=== PATIENT | female | born 1980 | race Caucasian/White ===

== ENCOUNTER 2016-09-09 19:10 | Emergency (ER) | payer OTHER ==
[~2016-09-09] VITALS: Ht 167.6 cm; Wt 130.0 kg
[~2016-09-09 19:10] MED LIST: ALBUAER2 INH; CITA40TA4 PO; HYDR50CA2 PO; MOME100A INH; MULT-506 PO; OXCA150T2 PO; OXYC1TAB3 PO
[2016-09-09 19:12] VITALS: TEMP 36.7; Ht 167.6 cm; Wt 130.0 kg
[2016-09-09] MEDS ORDERED: ONDANSETRON INJ 2 MG/ML 2 ML VIAL IV STA (21:32)
[2016-09-09] MEDS ORDERED: SODIUM CHLORIDE 0.9% 1000ML 1,000 ML IV STA ×2 (21:32)
[2016-09-09] MEDS ORDERED: ALBUT/IPRATROP 3MG/0.5MG NEB 3 ML VIAL INH STA (21:32)
[2016-09-09] MEDS ORDERED: METHYLPREDNISOLONE 125 MG VIAL IV STA (21:32)
[2016-09-09 21:53] VITALS: O2SAT 97
--- NOTE | 2016-09-09 22:09 | DIAGNOSTIC IMAGING REPORT ---
CHEST ONE VIEW PORTABLE HISTORY: Atypical CHEST PAIN COMPARISON: Chest 03/09/2016. FINDINGS: The lungs are clear. Cardiac silhouette is normal in size. No pleural effusions. No pneumothorax. Incidental is made of a small right azygos lobe. IMPRESSION: No acute process. Electronically signed by: Damian Woodruff M.D. 09/09/2016 10:08 PM Dictated Date/Time: 09/09/2016 10:07 PM
[2016-09-09 22:33] LABS: BASO % 0.3 %; BASO ABS # 0.02 K/uL (0-0.2); COMPLETE YES; EOS % 4.8 %; HEMATOCRIT 41.4 % (37-47); IG% 0.3 %; LYMPH % 26.9 %; LYMPH ABS # 2.07 K/uL (1.2-3.4); MEAN CELL VOLUME 86.3 fL (80-100); MEAN CORPUSCULAR HEMOGLOBIN 29.6 pg (25-34); MEAN CORPUSCULAR HGB CONC 34.3 g/dl (32-36); MEAN PLATELET VOLUME 11.1 fL (7.4-10.4); MONO % 4.4 %; NEUT % 63.3 %; PLATELET COUNT 177 K/uL (130-400); WHITE BLOOD COUNT 7.69 K/uL (4.8-10.8)
[2016-09-09 22:51] LABS: ALT/SGPT 36 U/L (12-78); BLOOD UREA NITROGEN 19 mg/dl (7-18); BUN/CREATININE RATIO 25.8 (10-20); CALCIUM 9.4 mg/dl (8.5-10.1); CARBON DIOXIDE 25 mmol/L (21-32); CHLORIDE 108 mmol/L (98-107); CREATININE 0.73 mg/dl (0.60-1.20); GLUCOSE 113 mg/dl (70-99); POTASSIUM 3.8 mmol/L (3.5-5.1); SODIUM 142 mmol/L (136-145)
[2016-09-09 22:56] LABS: ALKALINE PHOSPHATASE 92 U/L (45-117); AST/SGOT 26 U/L (15-37); CKMB/CK RATIO 0.9 (0-3.0)
--- NOTE | 2016-09-09 23:04 | DIAGNOSTIC IMAGING REPORT ---
BILATERAL LOWER EXTREMITY VENOUS DOPPLER HISTORY: calf pain, ? DVT COMPARISON STUDY: None. FINDINGS: There is normal compressibility, flow, and augmentation within the bilateral lower extremity deep venous systems. IMPRESSION: No DVT within the right or left lower extremity. Electronically signed by: Damian Woodruff M.D. 09/09/2016 11:02 PM Dictated Date/Time: 09/09/2016 11:02 PM
[2016-09-09] MEDS ORDERED: MoRPHine SULFATE 4 MG/ML 1 ML CARP\\VIAL IV STA (23:11)
[2016-09-09 23:12] LABS: PREG INTERNAL NEGATIVE QC NEG CLEAR BACKGROUND; PREG INTERNAL POSITIVE QC POS CONTROL LINE
[2016-09-10] MEDS ORDERED: ALBUTEROL HFA 8 GM INHALER INH STA (00:33)
[2016-09-10] MEDS ORDERED: AZITHROMYCIN 250 MG TAB PO STA (00:33)
[2016-09-10] MEDS ORDERED: PRED50TA PO (00:34)
[2016-09-10] MEDS ORDERED: AZIT250T PO (00:34)
[2016-09-10 00:39] VITALS: BP 119/83; PULSE 78; O2SAT 98
--- NOTE | 2016-09-10 04:47 | EMERGENCY ROOM VISIT NOTE ---
History First contact with patient: 21:30 Chief Complaint: CARDIAC ASSESSMENT Stated Complaint: CHEST PAIN, NAUSEA, ASTHMA Nursing Triage Summary: Patients states "She was turning blue on the way up here from her asthma. It started 5 days ago but not this bad." Patient states "I have a head cold and I started with chest pains today. I don't really have a cough. I was throwing up thursday and then tonight I started feeling sick again." History of Present Illness The patient is a 35 year old female who presents to the Emergency Room with complaints of cough, congestion, wheezing, chest pain and dyspnea for the past few days. Patient does smoke. She suffers from asthma. Patient denies fever, chills, headache, neck status, sore throat, abdominal pain, vomiting, diarrhea, recent travel. Patient states her legs normally ache. No prior heart disease. No family history of heart disease. No family history of blood clots. No prior history of blood clots. Patient states when she went outside to smoke her lips turned somewhat blue. Review of Systems See HPI for pertinent positives & negatives. A total of 10 systems reviewed and were otherwise negative. Past Medical/Surgical History Medical Problems: (1) Anxiety (2) Asthma (3) Asthma exacerbation (4) Asthma exacerbation (5) Bronchitis (6) Depression (7) Lumbar back pain (8) Morbid obesity with BMI of 50.0-59.9, adult (9) Otitis (10) Pain, dental (11) Pneumonia (12) Sinusitis (13) Tobacco abuse Surgical Problems: (1) H/O cystoscopy (2) S/P foot surgery, left Family History Diabetes mellitus Gallbladder disease Heart disease Hypertension Kidney disease Kidney stones Social History Smoking Status: Current Every Day Smoker Alcohol Use: none Drug Use: none Marital Status: Housing Status: lives with family Occupation Status: employed Current/Historical Medications Scheduled Azithromycin (Zithromax), 250 MG PO DAILY Ipratropium-Albuterol (Duoneb), 1 VIAL INH UD Mometasone Furoate-Formoterol (Dulera 100/5 Mcg), 2 PUFFS INH BID Prednisone (Prednisone), 50 MG PO DAILY Scheduled PRN Albuterol (Ventolin Hfa), 2 PUFFS INH QID PRN for SOB/Wheezing Allergies Coded Allergies: Diphenhydramine (Verified Allergy, Mild, HIVES, 09/09/16) Dust (Verified Allergy, Unknown, 09/09/16) Latex1 -Allergic Contact Dermititis (Verified Allergy, Unknown, `, 09/09/16 ) Molds & Smuts (Verified Allergy, Unknown, UNKN, 09/09/16) Naproxen (Verified Allergy, Unknown, PT GETS HIVES WITH NAPROXEN BUT CAN TOLERATE IBUPROFEN, 09/09/16) Hydrocodone (Verified Adverse Reaction, Unknown, Nausea and beconmes lightheaded., 09/09/16) Reported by PT. Physical Exam Vital Signs Date Time Temp Pulse Resp B/P Pulse Ox O2 Delivery O2 Flow Rate FiO2 09/10/16 00:39 78 18 119/83 98 Room Air 09/09/16 23:15 82 18 131/70 96 Room Air 09/09/16 21:57 79 09/09/16 21:53 97 Room Air 09/09/16 21:53 97 Room Air 09/09/16 21:53 78 16 143/82 97 Room Air 09/09/16 19:12 36.7 83 18 135/72 100 Room Air Pain Rating (0-10): 4.0 Physical Exam VITALS: Vitals are noted on the nurse's note and reviewed by myself. Vital signs stable. GENERAL: White female with tobacco odor, in no acute distress, nondiaphoretic, well-developed well-nourished. SKIN: The skin was without rashes, erythema, edema, or bruising. There is no tenting of the skin. Capillary reflex less than 2 seconds. HEAD: Normocephalic atraumatic. EARS: External auditory canals clear, tympanic membranes pearly montoya without erythema or effusion bilaterally. EYES: Pupils equal round and reactive to light and accommodation. Conjunctivae without injection, sclerae without icterus. Extraocular movements intact. NOSE: Patent, turbinates without inflammation or discharge. No sinus tenderness. MOUTH: Mucous membranes moist. Pharynx without erythema or exudate. Uvula midline. Airway patent. Tongue does not deviate. NECK: Supple without nuchal rigidity. No lymphadenopathy. No thyromegaly. Cervical spine is nontender. No JVD. HEART: Regular rate and rhythm without murmurs gallops or rubs. LUNGS: Mild diffuse end expiratory wheezes, without rales or rhonchi. No dullness to percussion. No retractions or accessory muscle use. ABDOMEN: Positive bowel sounds x 4. Normal tympanic percussion. Soft, protuberant, obese, nontender, without masses or organomegaly. Maria sign negative. No guarding or rebound tenderness. MUSCULOSKELETAL: No muscle atrophy, erythema, noted. Bilateral calf tenderness NEURO: Patient was alert and oriented to person place and time. Normal sensation to light and sharp touch. No focal neurological deficits. Medical Decision & Procedures Laboratory Results 09/09/16 22:15 Red Blood Count 4.80, Mean Corpuscular Volume 86.3, Mean Corpuscular Hemoglobin 29.6, Mean Corpuscular Hemoglobin Concent 34.3, Mean Platelet Volume 11.1, Neutrophils (%) (Auto) 63.3, Lymphocytes (%) (Auto) 26.9, Monocytes (%) (Auto) 4.4, Eosinophils (%) (Auto) 4.8, Basophils (%) (Auto) 0.3, Neutrophils # (Auto) 4.87, Lymphocytes # (Auto) 2.07, Monocytes # (Auto) 0.34, Eosinophils # (Auto) 0.37, Basophils # (Auto) 0.02 09/09/16 22:15 Test 09/09/16 22:15 09/09/16 22:24 09/10/16 00:24 White Blood Count 7.69 K/uL (4.8-10.8) Red Blood Count 4.80 M/uL (4.2-5.4) Hemoglobin 14.2 g/dL (12.0-16.0) Hematocrit 41.4 % (37-47) Mean Corpuscular Volume 86.3 fL (80-100) Mean Corpuscular Hemoglobin 29.6 pg (25-34) Mean Corpuscular Hemoglobin Concent 34.3 g/dl (32-36) Platelet Count 177 K/uL (130-400) Mean Platelet Volume 11.1 fL (7.4-10.4) Neutrophils (%) (Auto) 63.3 % Lymphocytes (%) (Auto) 26.9 % Monocytes (%) (Auto) 4.4 % Eosinophils (%) (Auto) 4.8 % Basophils (%) (Auto) 0.3 % Neutrophils # (Auto) 4.87 K/uL (1.4-6.5) Lymphocytes # (Auto) 2.07 K/uL (1.2-3.4) Monocytes # (Auto) 0.34 K/uL (0.11-0.59) Eosinophils # (Auto) 0.37 K/uL (0-0.5) Basophils # (Auto) 0.02 K/uL (0-0.2) RDW Standard Deviation 42.3 fL (36.4-46.3) RDW Coefficient of Variation 13.3 % (11.5-14.5) Immature Granulocyte % (Auto) 0.3 % Immature Granulocyte # (Auto) 0.02 K/uL (0.00-0.02) Anion Gap 9.0 mmol/L (3-11) Est Creatinine Clear Calc Drug Dose 150.1 ml/min Estimated GFR () 124.5 Estimated GFR (Non- 107.5 BUN/Creatinine Ratio 25.8 (10-20) Calcium Level 9.4 mg/dl (8.5-10.1) Total Bilirubin 0.3 mg/dl (0.2-1) Direct Bilirubin < 0.1 mg/dl (0-0.2) Aspartate Amino Transf (AST/SGOT) 26 U/L (15-37) Alanine Aminotransferase (ALT/SGPT) 36 U/L (12-78) Alkaline Phosphatase 92 U/L (45-117) Total Creatine Kinase 77 U/L (26-192) Creatine Kinase MB 0.7 ng/ml (0.5-3.6) Creatine Kinase MB Ratio 0.9 (0-3.0) Troponin I < 0.015 ng/ml (0-0.045) Total Protein 7.9 gm/dl (6.4-8.2) Albumin 4.1 gm/dl (3.4-5.0) Lipase 182 U/L (73-393) Human Chorionic Gonadotropin, Qual NEG (NEG) Bedside D-Dimer 290 ng/mlFEU (0-450) Bedside Troponin I 0.000 ng/ml (0-0.045) Medications Administered Medications (Trade) Dose Ordered Sig/Cristian Route Start Time Stop Time Status Last Admin Dose Admin Methylprednisolone Sodium Succinate (Solu-Medrol IV) 125 mg NOW STAT IV 09/09/16 21:32 09/09/16 21:39 DC 09/09/16 22:15 125 MG Ondansetron HCl 4 mg 4 mg NOW STAT IV 09/09/16 21:32 09/09/16 21:39 DC 09/09/16 22:15 4 MG Sodium Chloride 1,000 ml @ 999 mls/hr Q1H1M STAT IV 09/09/16 21:32 09/09/16 22:32 DC 09/09/16 22:15 999 MLS/HR Sodium Chloride (Nss 1000ml) 1,000 ml @ 125 mls/hr Q8H STAT IV 09/09/16 21:32 09/10/16 00:58 DC 09/09/16 23:16 125 MLS/HR Albuterol/ Ipratropium (Duoneb) 3 ml NOW STAT INH 09/09/16 21:32 09/09/16 21:39 DC 09/09/16 22:15 3 ML Morphine Sulfate (MoRPHine SULFATE INJ) 4 mg NOW STAT IV 09/09/16 23:11 09/09/16 23:12 DC 09/09/16 23:15 4 MG Azithromycin (Zithromax Tab) 500 mg NOW STAT PO 09/10/16 00:33 09/10/16 00:34 DC 09/10/16 00:43 500 MG Albuterol (Ventolin Hfa Inhaler) 2 puffs ONE STAT INH 09/10/16 00:33 09/10/16 00:34 DC 09/10/16 00:43 2 PUFFS ED Course Prior records/ancillary studies reviewed. Triage Nursing notes reviewed. Additional history obtained from family The patient's history was concerning for chest pain cough, dyspnea, wheezing. Differential diagnosis: Etiologies such as asthmatic bronchitis, cardiac ischemia, aortic dissection, pulmonary embolism, pneumonia, pneumothorax, musculoskeletal, infections, pericarditis, myocarditis, esophageal rupture, gastrointestinal, as well as others were entertained. Physical examination: As above. ER treatment provided: Nebulizer On reassessment the patient felt better. Diagnostic interpretation by me: The electrocardiogram was negative for pathologic change. Normal sinus, normal intervals, no acute ST-T wave changes. Impression normal sinus rhythm interpreted by myself The labs revealed 2 troponins 2.5 hours apart that are negative. No worrisome leukocytosis. Imaging studies: Chest x-ray as above CHEST ONE VIEW PORTABLE HISTORY: Atypical CHEST PAIN COMPARISON: Chest 03/09/2016. FINDINGS: The lungs are clear. Cardiac silhouette is normal in size. No pleural effusions. No pneumothorax. Incidental is made of a small right azygos lobe. IMPRESSION: No acute process. Electronically signed by: Damian Woodruff M.D. Ultrasound was negative for DVT per radiology Exam and history seem consistent with asthmatic bronchitis with pleurisy. Patient had 2 negative troponins. These are 2-1/2 hours apart. Normal EKG. She felt much better after being medicated as above. She was strongly encouraged to quit smoking. She is advised take medications as directed and to follow-up with family care in a few days or here in the ER sooner for chest pain , high fevers, difficulty breathing, worsening signs or symptoms or as needed. Patient had a negative d-dimer. Ultrasounds were negative. By the evaluation outlined above emergent etiologies such as cardiac ischemia, aortic dissection, pulmonary embolism, pneumonia, pneumothorax, pericarditis, myocarditis, gastrointestinal, as well as others were deemed relatively unlikely. The pt informed about the findings as listed above. All questions were answered and pleased with the treatment. Return instructions were outlined and the patient was discharged in stable condition. Outpatient prescription management: Prednisone, Zithromax Referral: The patient was referred back to primary care physician for follow-up in 2 to 3 days for a recheck of the current condition. Case reviewed with my attending Medical Decision As above Impression Primary Impression: Asthmatic bronchitis Additional Impression: pleurisy Departure Information Dispostion Home / Self-Care Condition GOOD Prescriptions Prednisone (Prednisone) 50 Mg Tab 50 MG PO DAILY for 4 Days, #4 TAB Prov: Toshia Wall PA-C 09/10/16 Azithromycin (Zithromax) 250 Mg Tab 250 MG PO DAILY for 4 Days, #4 TAB Prov: Toshia Wall PA-C 09/10/16 Forms Work Instructions, Return To Work: 2 days IMPORTANT VISIT INFORMATION Patient Instructions Pleurisy, Bronchitis Acute, My [facility] Additional Instructions Albuterol Inhaler: Take 2 puffs four times daily for five days, then as needed. Prednisone 50mg: Once daily until the prescription is finished. It is best to take this earlier in the day as some patients note occasional difficulty falling asleep when taken in the late evening. Azithromycin(Zithromax) 250mg: Take one a day for 4 additional days. All antibiotics can cause diarrhea. If this occurs and you feel worse or it does not resolve in 1-2 days follow up with your doctor or return to the Emergency Department as this could be signs of serious underlying problems. Any medication can cause an allergic reaction, stop the pills immediately and return to the ER for rash, hives, breathing difficulties, or swelling. Acetaminophen(Tylenol) may be used for fever or pain. Use 1000mg every six hours as needed. Avoid using more than 3000mg in a 24 hour period. (AND/OR) Ibuprofen(Motrin, Advil) may be used for fever or pain. Use 600mg every six hours as needed. Take with food. Avoid using more than 2400mg in a 24 hour period. Do not use 2400mg per day for more than three consecutive days without physician direction. Prolonged inappropriate use can lead to stomach upset or ulcers. Rest and drink plenty of fluids. Avoid smoke/smoking, fumes, dust, or any triggers in the past that may have affected your breathing. Continue current medications. Return to the ER for chest pain, difficulty breathing, fevers, vomiting, worsening of your condition, or as needed. Follow up with your primary physician this week for a recheck of your current condition. Work Instructions Return To Work: 2 days Problem Qualifiers Primary Impression: Asthmatic bronchitis Asthma severity: unspecified severity Asthma complication type: with acute exacerbation Qualified Codes: J45.901 - Unspecified asthma with (acute) exacerbation
[2016-10-09] MEDS ORDERED: IPRASOL4 NEB (10:49)
== END 2016-09-10 00:45 | disposition home or self-care (01) ==
LOC: C.EDB 19:12 → C.EDC 09-10 00:45
DX: J45.901 Unspecified asthma with (acute) exacerbation (principal); R09.1 Pleurisy; F41.9 Anxiety disorder, unspecified; F32.9 Major depressive disorder, single episode, unspecified; E66.01 Morbid (severe) obesity due to excess calories; Z68.43 Body mass index [BMI] 50.0-59.9, adult; Z87.01 Personal history of pneumonia (recurrent); Z83.3 Family history of diabetes mellitus; Z83.79 Family history of other diseases of the digestive system; Z82.49 Family history of ischemic heart disease and other diseases of the circulatory system; Z84.1 Family history of disorders of kidney and ureter; F17.210 Nicotine dependence, cigarettes, uncomplicated; Z88.8 Allergy status to other drugs, medicaments and biological substances; Z91.048 Other nonmedicinal substance allergy status; Z91.040 Latex allergy status; Z88.5 Allergy status to narcotic agent; Z88.6 Allergy status to analgesic agent

== ENCOUNTER 2016-10-09 21:00 | Emergency (ER) | payer OTHER ==
[~2016-10-09] VITALS: Ht 165.1 cm; Wt 131.5 kg
[~2016-10-09 21:00] MED LIST changes: -ALBUAER2 INH; -CITA40TA4 PO; -HYDR50CA2 PO; +IPRASOL4 NEB; -MULT-506 PO; -OXCA150T2 PO; -OXYC1TAB3 PO
[2016-10-09 21:19] VITALS: TEMP 36.8; Ht 165.1 cm; Wt 131.5 kg
[2016-10-09] MEDS ORDERED: LEVO750T23 PO (21:56)
[2016-10-09] MEDS ORDERED: PRED10TA PO (21:56)
[2016-10-09] MEDS ORDERED: FAMOTIDINE 20MG/102 ML D5W IV STA (22:06)
[2016-10-09] MEDS ORDERED: METHYLPREDNISOLONE 125 MG VIAL IV STA (22:06)
[2016-10-09] MEDS ORDERED: ALBUT/IPRATROP 3MG/0.5MG NEB 3 ML VIAL INH ONE (22:15)
[2016-10-09] MEDS ORDERED: AZITTAB PO (23:45)
[2016-10-09 23:54] VITALS: BP 144/91; PULSE 81; O2SAT 96
--- NOTE | 2016-10-10 00:24 | EMERGENCY ROOM VISIT NOTE ---
History First contact with patient: 21:55 Chief Complaint: ALLERGIC REACTION Stated Complaint: ASTHMA - PROBLEMS BREATHING - CHEST TIGHTNESS Nursing Triage Summary: see triage note History of Present Illness The patient is a 35 year old female who presents to the Emergency Room with complaints of allergic reaction that began today. The patient has had an asthma exacerbation for the past several days. She was started on Levaquin and prednisone as an outpatient. She has taken 2 doses of Levaquin, and in doing so has developed a rash across her chest into her neck. The patient feels very flushed and warm. She does not have any significant change in her breathing as she does have asthma. The patient does not have abdominal pain, nausea, or vomiting. She has had mild reactions to Levaquin in the past, but none to this extent. She rates her discomfort an 8/10. Review of Systems More than 10 systems were reviewed and otherwise negative with the exception of history of present illness. Past Medical/Surgical History Medical Problems: (1) Anxiety (2) Asthma (3) Asthma exacerbation (4) Asthma exacerbation (5) Bronchitis (6) Depression (7) Lumbar back pain (8) Morbid obesity with BMI of 50.0-59.9, adult (9) Otitis (10) Pain, dental (11) Pneumonia (12) Sinusitis (13) Tobacco abuse Surgical Problems: (1) H/O cystoscopy (2) S/P foot surgery, left Family History Diabetes mellitus Gallbladder disease Heart disease Hypertension Kidney disease Kidney stones Social History Smoking Status: Never Smoker Alcohol Use: none Drug Use: none Marital Status: Housing Status: lives with family Occupation Status: employed Current/Historical Medications Scheduled Azithromycin (Zithromax Z-Cirilo), 1 PKT PO UD Levofloxacin (Levaquin), 750 MG PO DAILY Prednisone Tab (Prednisone), 10 MG PO UD Scheduled PRN Albuterol (Ventolin Hfa), 2 PUFFS INH QID PRN for Shortness of Breath Ipratropium-Albuterol (Duoneb), 1 VIAL NEB QID PRN for SOB/Wheezing Allergies Coded Allergies: Diphenhydramine (Verified Allergy, Mild, HIVES, 09/09/16) Dust (Verified Allergy, Unknown, 09/09/16) Latex1 -Allergic Contact Dermititis (Verified Allergy, Unknown, `, 09/09/16 ) Molds & Smuts (Verified Allergy, Unknown, UNKN, 09/09/16) Naproxen (Verified Allergy, Unknown, PT GETS HIVES WITH NAPROXEN BUT CAN TOLERATE IBUPROFEN, 09/09/16) Hydrocodone (Verified Adverse Reaction, Unknown, Nausea and beconmes lightheaded., 09/09/16) Reported by PT. Physical Exam Vital Signs Date Time Temp Pulse Resp B/P Pulse Ox O2 Delivery O2 Flow Rate FiO2 10/09/16 23:54 81 20 144/91 96 10/09/16 23:08 82 20 142/85 99 Room Air 10/09/16 21:19 36.8 83 20 151/80 96 Room Air Pain Rating (0-10): 9.0 Physical Exam VITALS: Vitals are noted on the nurse's note and reviewed by myself. Vital signs stable. GENERAL: Well-developed, well-nourished, white female, who is in no acute distress and resting comfortably. Patient is cooperative with the examination. HEAD: Normocephalic atraumatic. MOUTH: Mucous membranes moist. Tonsils are not enlarged. Pharynx without erythema, blood, or exudate. Uvula midline. Airway patent. NECK: Supple without nuchal rigidity. No lymphadenopathy. No thyromegaly. Cervical spine is nontender. HEART: Regular rate and rhythm without murmurs gallops or rubs. LUNGS: Clear to auscultation bilaterally without wheezes, rales or rhonchi. No retractions or accessory muscle use. ABDOMEN: Positive normal bowel sounds x 4. Soft, nontender, without masses or organomegaly. No guarding or rebound tenderness. MUSCULOSKELETAL: No muscle atrophy, erythema, or edema noted. Full range of motion without joint tenderness in all extremities. Diffuse urticarial rash appreciated over the anterior chest wall into the anterior neck Medical Decision & Procedures Medications Administered Medications (Trade) Dose Ordered Sig/Cristian Route Start Time Stop Time Status Last Admin Dose Admin Methylprednisolone Sodium Succinate (Solu-Medrol IV) 125 mg NOW STAT IV 10/09/16 22:06 10/09/16 22:07 DC 10/09/16 22:33 125 MG Famotidine (Pepcid 20mg/100 ml) 20 mg ONE STAT IV 10/09/16 22:06 10/09/16 22:07 DC 10/09/16 22:33 20 MG Albuterol/ Ipratropium (Duoneb) 3 ml NOW ONCE INH 10/09/16 22:15 10/09/16 22:16 DC 10/09/16 22:33 3 ML ED Course Physical exam and history were performed. Nursing notes and EMR were reviewed. Patient appears to have allergic reaction to Levaquin. The patient does not appear in anaphylaxis. IV access was established and the patient was given IV Solu-Medrol and IV Pepcid. The patient does not appear to need epinephrine. She is allergic to Benadryl. She was given a DuoNeb. The patient was reevaluated multiple times with course of her stay. She had significant improvement of her symptoms after the above interventions. Her rash was notably improved, and she had subjective improvement of her breathing. Repeat lung and abdomen exams did not show worsening of symptoms. The patient is currently on a tapering dose of prednisone and starts taking 40 mg tomorrow. This appears reasonable, and I would like her to continue this. I have asked her to stop the Levaquin, as I feel this is the likely cause of her reaction. I will give her a course of Zithromax, as she has tolerated this in the past. The patient was otherwise invited back to the ER with any new, worsening, or concerning symptoms. The chart was completed utilizing [employer] Speech Voice Recognition Software. Grammatical errors, random word insertions, pronoun errors, and incomplete sentences are an occasional consequence of this system due to software limitations, ambient noise, and hardware issues. Any formal questions or concerns about the content, text, or information contained within the body of this dictation should be directly addressed to the provider for clarification. . Medical Decision Differential diagnosis: Etiologies such as allergic reaction, anaphylaxis, urticaria, Pino-Duke syndrome, toxic epidermal necrolysis, erythema multiforme, cellulitis, as well as others were entertained. Impression Primary Impression: Allergic reaction Departure Information Dispostion Home / Self-Care Condition GOOD Prescriptions Azithromycin (ZITHROMAX Z-CIRILO) 250 Mg Tab 1 PKT PO UD for 5 Days, #1 PKT Prov: Adria Sapp PA-C 10/09/16 Referrals Katerin Laguna D.O. (PCP) Forms HOME CARE DOCUMENTATION FORM, IMPORTANT VISIT INFORMATION Patient Instructions My [facility] Additional Instructions You were seen and evaluated today on an emergency basis only. This is not a substitute for, or an effort to provide, complete comprehensive medical care. It is not possible to recognize and treat all injuries or illnesses in a single emergency department visit. For this reason it is recommended that you followup with your primary care physician this week for ongoing care and evaluation. Continue prednisone as previously prescribed. Take Zithromax as prescribed You are welcome to return to the emergency department anytime with new, worsening, or concerning symptoms.
== END 2016-10-09 23:56 | disposition home or self-care (01) ==
LOC: C.EDB 21:02
DX: R21 Rash and other nonspecific skin eruption (principal); T36.8X5A Adverse effect of other systemic antibiotics, initial encounter; J45.909 Unspecified asthma, uncomplicated; E66.01 Morbid (severe) obesity due to excess calories; Z87.01 Personal history of pneumonia (recurrent); Z98.890 Other specified postprocedural states; Z83.3 Family history of diabetes mellitus; Z82.49 Family history of ischemic heart disease and other diseases of the circulatory system; Z84.1 Family history of disorders of kidney and ureter; Z79.52 Long term (current) use of systemic steroids

== ENCOUNTER 2016-10-13 11:32 | Emergency (ER) | payer OTHER ==
[~2016-10-13] VITALS: Ht 167.6 cm; Wt 131.7 kg
[~2016-10-13 11:32] MED LIST changes: +AZITTAB PO; +LEVO750T23 PO; -MOME100A INH; +PRED10TA PO
[2016-10-13 11:49] VITALS: TEMP 37.1; Ht 167.6 cm; Wt 131.7 kg
--- NOTE | 2016-10-13 13:45 | EMERGENCY ROOM VISIT NOTE ---
History Report prepared by Tristan: Kiara Saab Under the Supervision of: Dr. Medhat Olson M.D. First contact with patient: 13:28 Chief Complaint: RESPIRATORY PROBLEMS Stated Complaint: RESPIRATORY, FLU History of Present Illness The patient is a 35 year old female who presents to the Emergency Room with complaints of a persistent illness that began several days ago. She currently rates her discomfort as a 9/10 in severity. The patient states that she was evaluated in the emergency department on 10/08 and was placed on Levaquin. She states that she had a reaction to the Levaquin and was placed on Prednisone and Zithromax. She states that she had been feeling okay since then, but states that last night she developed diarrhea. The patient states that she additionally has had chest tightness, shortness of breath, and abdominal pain. The patient stats that she has been using her inhaler every six hours. She states that her pain today feels similar to when she has her upper respiratory difficulties. The patient does note a history of pneumonia. She additionally notes lightheadedness today. The patient denies any history of a cholecystectomy. Source of History: patient Onset: several days ago Position: other (global) Symptom Intensity: 9/10 Quality: other (illness) Timing: other (persistent) Associated Symptoms: + SOB, + abdominal pain, + chest pain, + diarrhea Note: Associated Symptoms: lightheadedness Review of Systems See HPI for pertinent positives & negatives. A total of 10 systems reviewed and were otherwise negative. Past Medical & Surgical Medical Problems: (1) Anxiety (2) Asthma (3) Asthma exacerbation (4) Asthma exacerbation (5) Bronchitis (6) Depression (7) Lumbar back pain (8) Morbid obesity with BMI of 50.0-59.9, adult (9) Otitis (10) Pain, dental (11) Pneumonia (12) Sinusitis (13) Tobacco abuse Surgical Problems: (1) H/O cystoscopy (2) S/P foot surgery, left Family History Diabetes mellitus Gallbladder disease Heart disease Hypertension Kidney disease Kidney stones Social History Smoking Status: Current Every Day Smoker Alcohol Use: none Drug Use: none Marital Status: Housing Status: lives with family Occupation Status: employed Current/Historical Medications Scheduled Azithromycin (Zithromax Z-Cirilo), 1 PKT PO UD Prednisone Tab (Prednisone), 10 MG PO UD Scheduled PRN Albuterol (Ventolin Hfa), 2 PUFFS INH QID PRN for Shortness of Breath Ipratropium-Albuterol (Duoneb), 1 VIAL NEB QID PRN for SOB/Wheezing Oxycodone/Acetaminophen 5MG/325MG (Percocet 5MG/325MG), 1-2 TAB PO Q4H PRN for Pain Allergies Coded Allergies: Diphenhydramine (Verified Allergy, Mild, HIVES, 09/09/16) Dust (Verified Allergy, Unknown, 09/09/16) Latex1 -Allergic Contact Dermititis (Verified Allergy, Unknown, `, 09/09/16 ) Molds & Smuts (Verified Allergy, Unknown, UNKN, 09/09/16) Naproxen (Verified Allergy, Unknown, PT GETS HIVES WITH NAPROXEN BUT CAN TOLERATE IBUPROFEN, 09/09/16) Hydrocodone (Verified Adverse Reaction, Unknown, Nausea and beconmes lightheaded., 09/09/16) Reported by PT. Physical Exam Vital Signs Date Time Temp Pulse Resp B/P Pulse Ox O2 Delivery O2 Flow Rate FiO2 10/13/16 17:14 75 18 129/71 98 10/13/16 15:13 78 16 96 Room Air 10/13/16 15:11 64 10/13/16 14:49 65 16 140/90 97 Room Air 10/13/16 14:49 97 Room Air 10/13/16 14:49 97 Room Air 10/13/16 11:49 37.1 81 18 134/84 98 Room Air Physical Exam GENERAL: Patient is a healthy-appearing well-nourished HEAD: Normocephalic atraumatic EYES: Ocular movements intact pupils equal and react to light OROPHARYNX mucous membranes are moist no exudates present no erythema or edema present NECK: Supple no nuchal rigidity CHEST: Good equal expansion LUNGS: Clear and equal to auscultation CARDIAC: Normal S1 and S2 ABDOMEN: Tender in right upper quadrant BACK: No CVA tenderness EXTREMITIES: No pain upon palpation normal muscle strength in all groups no clubbing cyanosis or edema NEURO: Patient is following commands is answering questions appropriately. Alert and oriented x3 Cranial Nerves 2-12 grossly intact Medical Decision & Procedures ER Provider Diagnostic Interpretation: Radiology results as stated below per my review and radiologist interpretation: ABDOMINAL ULTRASOUND, RIGHT UPPER QUADRANT HISTORY: Pain. Nausea. Pt c/o RUQ abd pain. COMPARISON: 12/24/2015 FINDINGS: Pancreas: The pancreas demonstrates a normal echotexture. Liver: Mild fatty infiltration Gallbladder: No gallbladder wall thickening. No gallstones. CBD: 4 mm Right kidney: No hydronephrosis. IMPRESSION: Fatty infiltration of liver. Otherwise normal study Electronically signed by: Howard Randle M.D. 10/13/2016 4:48 PM Dictated Date/Time: 10/13/2016 4:47 PM PA CHEST RADIOGRAPH AND UPRIGHT AND SUPINE AP RADIOGRAPHS OF THE ABDOMEN CLINICAL HISTORY: Chest pain. COMPARISON STUDY: Chest radiograph September 09, [address] of the abdomen and pelvis April 22, 2015. FINDINGS: Incidental note is made of an azygos fissure. Lung volumes are normal. No consolidation is identified. Cardiac size is normal. Mediastinal contours are normal. There is no evidence of pulmonary edema. There is no free air. Bowel gas pattern is normal. IMPRESSION: 1. No free air or evidence of bowel obstruction. 2. No acute cardiopulmonary findings. Electronically signed by: Andrea Gudino M.D. 10/13/2016 3:35 PM Dictated Date/Time: 10/13/2016 3:34 PM Laboratory Results 10/13/16 14:34 Red Blood Count 4.38, Mean Corpuscular Volume 86.5, Mean Corpuscular Hemoglobin 29.2, Mean Corpuscular Hemoglobin Concent 33.8, Mean Platelet Volume 10.5, Neutrophils (%) (Auto) 80.5, Lymphocytes (%) (Auto) 17.5, Monocytes (%) (Auto) 1.4, Eosinophils (%) (Auto) 0.1, Basophils (%) (Auto) 0.1, Neutrophils # (Auto) 5.81, Lymphocytes # (Auto) 1.26, Monocytes # (Auto) 0.10, Eosinophils # (Auto) 0.01, Basophils # (Auto) 0.01 10/13/16 14:34 Test 10/13/16 14:16 10/13/16 14:34 10/13/16 14:37 10/13/16 14:40 Urine Color RED Urine Appearance CLOUDY (CLEAR) Urine pH 7.5 (4.5-7.5) Urine Specific [place] 1.010 (1.000-1.030) Urine Protein NEG (NEG) Urine Glucose (UA) NEG (NEG) Urine Ketones NEG (NEG) Urine Occult Blood 3+ (NEG) Urine Nitrite NEG (NEG) Urine Bilirubin NEG (NEG) Urine Urobilinogen NEG (NEG) Urine Leukocyte Esterase NEG (NEG) Urine RBC >30 /hpf (0-4) Urine WBC >30 /hpf (0-5) Urine Epithelial Cells 20-30 /lpf (0-5) Urine Bacteria NEG (NEG) Urine Test NEG (NEG) White Blood Count 7.22 K/uL (4.8-10.8) Red Blood Count 4.38 M/uL (4.2-5.4) Hemoglobin 12.8 g/dL (12.0-16.0) Hematocrit 37.9 % (37-47) Mean Corpuscular Volume 86.5 fL (80-100) Mean Corpuscular Hemoglobin 29.2 pg (25-34) Mean Corpuscular Hemoglobin Concent 33.8 g/dl (32-36) Platelet Count 186 K/uL (130-400) Mean Platelet Volume 10.5 fL (7.4-10.4) Neutrophils (%) (Auto) 80.5 % Lymphocytes (%) (Auto) 17.5 % Monocytes (%) (Auto) 1.4 % Eosinophils (%) (Auto) 0.1 % Basophils (%) (Auto) 0.1 % Neutrophils # (Auto) 5.81 K/uL (1.4-6.5) Lymphocytes # (Auto) 1.26 K/uL (1.2-3.4) Monocytes # (Auto) 0.10 K/uL (0.11-0.59) Eosinophils # (Auto) 0.01 K/uL (0-0.5) Basophils # (Auto) 0.01 K/uL (0-0.2) RDW Standard Deviation 42.2 fL (36.4-46.3) RDW Coefficient of Variation 13.2 % (11.5-14.5) Immature Granulocyte % (Auto) 0.4 % Immature Granulocyte # (Auto) 0.03 K/uL (0.00-0.02) Est Creatinine Clear Calc Drug Dose 162.4 ml/min Estimated GFR () 132.3 Estimated GFR (Non- 114.1 BUN/Creatinine Ratio 23.5 (10-20) Calcium Level 9.0 mg/dl (8.5-10.1) Total Bilirubin 0.3 mg/dl (0.2-1) Aspartate Amino Transf (AST/SGOT) 13 U/L (15-37) Alanine Aminotransferase (ALT/SGPT) 38 U/L (12-78) Alkaline Phosphatase 77 U/L (45-117) Total Creatine Kinase 36 U/L (26-192) Creatine Kinase MB < 0.5 ng/ml (0.5-3.6) Creatine Kinase MB Ratio (0-3.0) Troponin I < 0.015 ng/ml (0-0.045) Total Protein 7.1 gm/dl (6.4-8.2) Albumin 3.7 gm/dl (3.4-5.0) Globulin 3.4 gm/dl (2.5-4.0) Albumin/Globulin Ratio 1.1 (0.9-2) Lipase 106 U/L (73-393) Bedside D-Dimer 414 ng/mlFEU (0-450) Bedside Hemoglobin 12.9 g/dl (12.0-16.0) Bedside Hematocrit 38 % (37-47) Bedside Sodium 141 mEq/L (135-144) Bedside Potassium 4.2 mEq/L (3.3-5.0) Bedside Chloride 104 mEq/L (101-112) Bedside Total CO2 24 mEq/l (24-31) Anion Gap 19.0 mmol/L (16-25) Bedside Blood Urea Nitrogen 15 mg/dl (7-18) Bedside Creatinine 0.5 mg/dl (0.6-1.3) Bedside Glucose (other) 106 mg/dl (70-99) Bedside Ionized Calcium ([place]) 1.24 mmol/l (1.12-1.32) Labs reviewed by ED physician. Medications Administered Medications (Trade) Dose Ordered Sig/Cristian Route Start Time Stop Time Status Last Admin Dose Admin Albuterol/ Ipratropium 12 ml 12 ml ONE ONCE INH 10/13/16 14:00 10/13/16 14:01 DC 10/13/16 14:00 12 ML Sodium Chloride (Nss 1000ml) 1,000 ml @ 999 mls/hr Q1H1M STAT IV 10/13/16 13:46 10/13/16 14:46 DC 10/13/16 14:45 999 MLS/HR Ketorolac Tromethamine (Toradol Inj) 30 mg NOW STAT IV 10/13/16 13:46 10/13/16 13:47 DC 10/13/16 14:45 30 MG Hydromorphone HCl (Dilaudid Inj) 0.5 mg NOW STAT IV 10/13/16 13:46 10/13/16 13:47 DC 10/13/16 14:45 0.5 MG ECG Indication: chest pain, SOB/dyspnea Rate (beats per minute): 66 Rhythm: normal sinus Findings: no acute ischemic change, no ectopy ED Course 1340: Past medical records reviewed. The patient was evaluated in room C2. A complete history and physical examination was performed. 1346: Ordered Dilaudid Inj 0.5 mg IV, Toradol Inj 30 mg IV, Sodium Chloride 1000 ml @ 999 mls/hr IV. 1400: Ordered Duoneb 12 ml INH. 1652: I reevaluated the patient and she is resting comfortably. I discussed all the exam findings with her and I discussed the treatment plan. She verbalized complete understanding and agreement. She is ready to go home. Medical Decision Differential diagnosis: Etiologies such as appendicitis, diverticulitis, PUD, biliary pathology, UTI, pancreatitis, obstruction, mesenteric ischemia, aortic pathology, infections, inflammatory bowel disease, renal colic, as well as others were entertained. This is a 35-year-old female who presents emergency department complaining of right upper quadrant abdominal pain along with chest pain. Patient has normal CK-MB troponin. She believes he azithromycin gave her diarrhea. I advised her to stop taking the azithromycin. She is well in appearance. Serial abdominal examinations were performed on the patient in the emergency department and at no time did the patient exhibit a surgical abdomen. The patient was sent for a ultrasound of her gallbladder as she is having right upper quadrant abdominal tenderness. There is no evidence of pneumonia on her chest x-ray showed will not continue her on antibiotics. The patient was observed for a total of 4 hours in the emergency department and at no time did she give us a stool sample. She was written for prescription for stool. She will be given some pain medication for home. I recommended a clear liquid diet for the next 48 hours. The patient was given Toradol and Dilaudid and Zofran in the emergency department repeat examination revealed improvement patient's symptoms. Patient was in agreement with the treatment plan. Impression Primary Impression: Generalized abdominal pain Additional Impression: Diarrhea Scribe Attestation The scribe's documentation has been prepared under my direction and personally reviewed by me in its entirety. I confirm that the note above accurately reflects all work, treatment, procedures, and medical decision making performed by me. Departure Information Dispostion Home / Self-Care Prescriptions Oxycodone/Acetaminophen 5MG/325MG (PERCOCET 5MG/325MG) Tab 1-2 TAB PO Q4H Y for Pain, #14 TAB Prov: Medhat Olson MD 10/13/16 Referrals Katerin Laguna D.O. (PCP) Forms HOME CARE DOCUMENTATION FORM, IMPORTANT VISIT INFORMATION, WORK / SCHOOL INSTRUCTIONS Patient Instructions ED Diet Vomiting Diarrhea, ED Vomiting Diarrhea Nonspecific Ad, My [facility] Additional Instructions Take probiotic yogurt for diarrhea You received narcotic or benzodiazepene medication while in the emergency room today. Do not drive, operate heavy machinery, or drink alcohol under the influence of this medication. Take 600 mg Ibuprofen every 6 hours Take Percocet for breakthrough pain You have been examined and treated today on an emergency basis only. This is not a substitute for, or an effort to provide, complete comprehensive medical care. It is impossible to recognize and treat all injuries or illnesses in a single emergency department visit. It is therefore important that you follow up closely with Dr Laguna. Call as soon as possible for an appointment. Thank you for your time and consideration. I look forward to speaking with you again soon. Please don't hesitate to call us if you have any questions. Problem Qualifiers Additional Impression: Diarrhea Diarrhea type: unspecified type Qualified Codes: R19.7 - Diarrhea, unspecified
[2016-10-13] MEDS ORDERED: SODIUM CHLORIDE 0.9% 1000ML 1,000 ML IV STA (13:46)
[2016-10-13] MEDS ORDERED: KETOROLAC TROMETHAMINE 30 MG/ML VIAL IV STA (13:46)
[2016-10-13] MEDS ORDERED: HYDROmorphone INJ 0.5 MG/0.5 ML SYR IV STA (13:46)
[2016-10-13] MEDS ORDERED: ALBUT/IPRATROP 3MG/0.5MG NEB 3 ML VIAL INH ONE (14:00)
[2016-10-13 14:49] VITALS: O2SAT 97
[2016-10-13 14:50] LABS: MANUAL MICROSCOPIC REQUIRED? YES; URINE APPEARANCE CLOUDY (CLEAR); URINE BILIRUBIN NEG (NEG); URINE COLOR RED; URINE NITRITE NEG (NEG); URINE PH 7.5 (4.5-7.5); UROBILINOGEN NEG (NEG)
[2016-10-13 14:51] LABS: BASO % 0.1 %; BASO ABS # 0.01 K/uL (0-0.2); COMPLETE YES; EOS % 0.1 %; HEMATOCRIT 37.9 % (37-47); IG% 0.4 %; LYMPH % 17.5 %; LYMPH ABS # 1.26 K/uL (1.2-3.4); MEAN CELL VOLUME 86.5 fL (80-100); MEAN CORPUSCULAR HEMOGLOBIN 29.2 pg (25-34); MEAN CORPUSCULAR HGB CONC 33.8 g/dl (32-36); MEAN PLATELET VOLUME 10.5 fL (7.4-10.4); MONO % 1.4 %; NEUT % 80.5 %; PLATELET COUNT 186 K/uL (130-400); RED BLOOD COUNT 4.38 M/uL (4.2-5.4); WHITE BLOOD COUNT 7.22 K/uL (4.8-10.8)
[2016-10-13 14:52] LABS: ISTAT CREATININE 0.5 mg/dl (0.6-1.3); ISTAT HEMOGLOBIN 12.9 g/dl (12.0-16.0); ISTAT IONIZED CALCIUM 1.24 mmol/l (1.12-1.32)
[2016-10-13 15:01] LABS: REVIEW REQ? NO
[2016-10-13 15:05] LABS: SULFASALICYLIC ACID POS (NEG)
[2016-10-13 15:10] LABS: URINE RBC >30 /hpf (0-4); URINE WBC >30 /hpf (0-5)
[2016-10-13 15:11] LABS: ALT/SGPT 38 U/L (12-78); BLOOD UREA NITROGEN 16 mg/dl (7-18); BUN/CREATININE RATIO 23.5 (10-20); CARBON DIOXIDE 26 mmol/L (21-32); CHLORIDE 107 mmol/L (98-107); CREATININE 0.68 mg/dl (0.60-1.20); GLUCOSE 103 mg/dl (70-99); POTASSIUM 4.1 mmol/L (3.5-5.1); SODIUM 141 mmol/L (136-145)
[2016-10-13 15:12] LABS: URINE BACTERIA NEG (NEG)
[2016-10-13 15:13] VITALS: PULSE 78; O2SAT 96
[2016-10-13 15:14] LABS: ZZUR CULT IF INDIC CLEAN CATCH YES
[2016-10-13 15:16] LABS: ALB/GLOB RATIO 1.1 (0.9-2); ALKALINE PHOSPHATASE 77 U/L (45-117); AST/SGOT 13 U/L (15-37)
--- NOTE | 2016-10-13 15:37 | DIAGNOSTIC IMAGING REPORT ---
PA CHEST RADIOGRAPH AND UPRIGHT AND SUPINE AP RADIOGRAPHS OF THE ABDOMEN CLINICAL HISTORY: Chest pain. COMPARISON STUDY: Chest radiograph September 09, [address] of the abdomen and pelvis April 22, 2015. FINDINGS: Incidental note is made of an azygos fissure. Lung volumes are normal. No consolidation is identified. Cardiac size is normal. Mediastinal contours are normal. There is no evidence of pulmonary edema. There is no free air. Bowel gas pattern is normal. IMPRESSION: 1. No free air or evidence of bowel obstruction. 2. No acute cardiopulmonary findings. Electronically signed by: Andrea Gudino M.D. 10/13/2016 3:35 PM Dictated Date/Time: 10/13/2016 3:34 PM
--- NOTE | 2016-10-13 16:49 | DIAGNOSTIC IMAGING REPORT ---
ABDOMINAL ULTRASOUND, RIGHT UPPER QUADRANT HISTORY: Pain. Nausea. Pt c/o RUQ abd pain. COMPARISON: 12/24/2015 FINDINGS: Pancreas: The pancreas demonstrates a normal echotexture. Liver: Mild fatty infiltration Gallbladder: No gallbladder wall thickening. No gallstones. CBD: 4 mm Right kidney: No hydronephrosis. IMPRESSION: Fatty infiltration of liver. Otherwise normal study Electronically signed by: Howard Randle M.D. 10/13/2016 4:48 PM Dictated Date/Time: 10/13/2016 4:47 PM
[2016-10-13] MEDS ORDERED: OXYC-57 PO (16:53)
[2016-10-13 17:14] VITALS: BP 129/71; PULSE 75; O2SAT 98
== END 2016-10-13 17:16 | disposition home or self-care (01) ==
LOC: C.EDB 11:33 → C.EDC 17:16
DX: R10.84 Generalized abdominal pain (principal); R19.7 Diarrhea, unspecified; Z87.01 Personal history of pneumonia (recurrent); F41.9 Anxiety disorder, unspecified; J45.909 Unspecified asthma, uncomplicated; F32.9 Major depressive disorder, single episode, unspecified; E66.01 Morbid (severe) obesity due to excess calories; Z68.42 Body mass index [BMI] 45.0-49.9, adult; F17.210 Nicotine dependence, cigarettes, uncomplicated; Z83.3 Family history of diabetes mellitus; Z82.49 Family history of ischemic heart disease and other diseases of the circulatory system; Z87.440 Personal history of urinary (tract) infections

== ENCOUNTER 2016-11-10 09:13 | Emergency (ER) | payer OTHER ==
[~2016-11-10] VITALS: Ht 167.6 cm; Wt 133.8 kg
[~2016-11-10 09:13] MED LIST changes: -AZITTAB PO; -LEVO750T23 PO; +OXYC-57 PO
[2016-11-10 09:15] VITALS: Ht 167.6 cm; Wt 133.8 kg
[2016-11-10] MEDS ORDERED: OXYCODONE HCL IR 5 MG TAB (IMMEDIATE RELEASE) PO STA (09:41)
[2016-11-10] MEDS ORDERED: OXYC1TAB3 PO (09:44)
[2016-11-10] MEDS ORDERED: PENI-82 PO (09:44)
[2016-11-10 10:06] VITALS: BP 128/89; PULSE 66; TEMP 36.7; O2SAT 99
--- NOTE | 2016-11-10 18:08 | EMERGENCY ROOM VISIT NOTE ---
History First contact with patient: 09:32 Chief Complaint: DENTAL PAIN Stated Complaint: RIGHT LOWER JAW PAIN Nursing Triage Summary: R lower dental pain History of Present Illness The patient is a 35 year old female who presents to the Emergency Room with complaints of right lower dental pain. The patient reports that she has had this discomfort for the past few weeks. She has not noticed any gum swelling, drainage or foul taste. She denies any difficulty swallowing or swelling under the tongue. She has not tried to contact the dentist, and rates her discomfort a 10 out of 10. Review of Systems 10 system review was performed and was negative except for pertinent positives and negatives as indicated in history of present illness Past Medical/Surgical History Medical Problems: (1) Anxiety (2) Asthma (3) Asthma exacerbation (4) Asthma exacerbation (5) Bronchitis (6) Depression (7) Lumbar back pain (8) Morbid obesity with BMI of 50.0-59.9, adult (9) Otitis (10) Pain, dental (11) Pneumonia (12) Sinusitis (13) Tobacco abuse Surgical Problems: (1) H/O cystoscopy (2) S/P foot surgery, left Family History Diabetes mellitus FH: cancer Gallbladder disease Heart disease Hypertension Kidney disease Kidney stones Social History Smoking Status: Current Every Day Smoker Alcohol Use: none Drug Use: none Marital Status: Housing Status: lives with family Occupation Status: employed Current/Historical Medications Scheduled Penicillin V Potassium (Veetids), 500 MG PO QID Prednisone Tab (Prednisone), 10 MG PO UD Scheduled PRN Albuterol (Ventolin Hfa), 2 PUFFS INH QID PRN for Shortness of Breath Ipratropium-Albuterol (Duoneb), 1 VIAL NEB QID PRN for SOB/Wheezing Oxycodone Ir (Roxicodone Ir), 1-2 TAB PO Q4H PRN for Pain Oxycodone/Acetaminophen 5MG/325MG (Percocet 5MG/325MG), 1-2 TAB PO Q4H PRN for Pain Allergies Coded Allergies: Diphenhydramine (Verified Allergy, Mild, HIVES, 09/09/16) Dust (Verified Allergy, Unknown, 09/09/16) Latex1 -Allergic Contact Dermititis (Verified Allergy, Unknown, `, 09/09/16 ) Molds & Smuts (Verified Allergy, Unknown, UNKN, 09/09/16) Naproxen (Verified Allergy, Unknown, PT GETS HIVES WITH NAPROXEN BUT CAN TOLERATE IBUPROFEN, 09/09/16) Hydrocodone (Verified Adverse Reaction, Unknown, Nausea and beconmes lightheaded., 09/09/16) Reported by PT. Physical Exam Vital Signs Date Time Temp Pulse Resp B/P Pulse Ox O2 Delivery O2 Flow Rate FiO2 11/10/16 10:06 36.7 66 18 128/89 99 11/10/16 09:15 36.7 70 18 123/74 98 Room Air Physical Exam CONSTITUTIONAL: Healthy and well nourished. Alert and oriented X 3 with positive affect. HEENT: Normocephalic, atraumatic. Pupils equal, round and reactive. No facial edema noted. OROPHARYNX: No obvious dental cavities, jim erythema, fluctuance or pointing. No evidence for Thompson's angina or retropharyngeal abscess. LYMPHATICS: No cervical, submandibular or submental adenopathy. NECK: Full active range of motion without discomfort. RESPIRATORY: Clear to auscultation bilaterally with no wheezing, crackles, rhonchi or stridor. CARDIOVASCULAR: Regular rate and rhythm with no murmurs, rubs or gallops. INTEGUMENTARY: No rash or other significant dermatologic conditions noted. NEUROLOGIC: Facial sensations are intact. Medical Decision & Procedures Medications Administered Medications (Trade) Dose Ordered Sig/Cristian Route Start Time Stop Time Status Last Admin Dose Admin Oxycodone HCl (Roxicodone Immediate Rel Tab) 5 mg NOW STAT PO 11/10/16 09:41 11/10/16 09:42 DC 11/10/16 09:41 5 MG ED Course Patient history and physical exam were performed. Nurse's notes were reviewed. The patient will be provided a prescription for Pen-Vee K 500 mg 4 times a day 10 days, and OxyIR 5 mg, dispensed #15 with no refills. She was also encouraged to alternate ibuprofen and Tylenol for baseline pain relief. She was given contact information for Dr. Gomez. Return to the emergency department for any significant worsening pain, difficulty swallowing or facial swelling. The patient was administered OxyIR 5 mg just prior to discharge, and rated her pain an 8 out of 10. [place] Drug Monitoring Program Search Results: patient reviewed within database, no issues identified Impression Primary Impression: Pain, dental Departure Information Prescriptions Oxycodone Ir (Roxicodone Ir) 5 Mg Tab 1-2 TAB PO Q4H Y for Pain, #24 TAB For Initial Treatment Prov: Rogelio Angel PA 11/10/16 Penicillin V Potassium (Veetids) 500 Mg Tab 500 MG PO QID for 10 Days, #40 TAB Prov: Rogelio Angel PA 11/10/16 Referrals Katerin Laguna D.O. (PCP) Patient Instructions [facility]
[2017-05-07] MEDS ORDERED: ACET-1256 PO (10:46)
== END 2016-11-10 10:00 | disposition home or self-care (01) ==
LOC: C.EDB 09:15 → C.EDC 10:00
DX: K08.89 Other specified disorders of teeth and supporting structures (principal); F41.9 Anxiety disorder, unspecified; F32.9 Major depressive disorder, single episode, unspecified; J45.909 Unspecified asthma, uncomplicated; Z87.01 Personal history of pneumonia (recurrent); Z87.09 Personal history of other diseases of the respiratory system; Z82.49 Family history of ischemic heart disease and other diseases of the circulatory system; Z83.3 Family history of diabetes mellitus; Z83.79 Family history of other diseases of the digestive system; Z84.1 Family history of disorders of kidney and ureter; F17.200 Nicotine dependence, unspecified, uncomplicated

== ENCOUNTER 2016-11-27 19:05 | Emergency (ER) | payer OTHER ==
[~2016-11-27] VITALS: Ht 167.6 cm; Wt 133.4 kg
[~2016-11-27 19:05] MED LIST changes: +OXYC1TAB3 PO
[2016-11-27 19:08] VITALS: Ht 167.6 cm; Wt 133.4 kg
[2016-11-27] MEDS ORDERED: ACET-1256 PO (19:22)
[2016-11-27] MEDS ORDERED: PENI500T2 PO (19:42)
[2016-11-27] MEDS ORDERED: OXYC-57 PO (19:42)
[2016-11-27] MEDS ORDERED: PERCOCET HOME PACK PO ONE (19:45)
[2016-11-27] MEDS ORDERED: PENICILLIN HOME PACK 500MG (4 DOSES)BTL PO ONE (19:45)
[2016-11-27 19:57] VITALS: BP 132/82; PULSE 100; TEMP 36.7; O2SAT 97
--- NOTE | 2016-11-27 22:42 | EMERGENCY ROOM VISIT NOTE ---
ED Visit Note First contact with patient: 19:20 CHIEF COMPLAINT: Fever and jaw pain. HISTORY OF PRESENT ILLNESS: Ms. Amaya is a 36-year-old white female who ambulates into the ED accompanied by a male friend and her daughter complaining of bilateral mandibular pain and fever. Patient reports she has been having ongoing dental disease. She was seen by a dentist and was referred to an oral surgeon and is scheduled for multiple teeth extractions in December. Additionally she reports earlier this week she developed a sore throat with laryngitis. She was seen at her PCPs office and reports a strep screen was performed and was negative. Currently she reports progressive bilateral mandibular pain which she believes is related to her dental disease. This is been ongoing for a long period of time but has greatly increased over the last few days. She is not able to describe her discomfort. She rates her discomfort 10/10. Her pain is radiating into the left ear. Her pain worsened with palpation of the teeth, palpation of the mandible and her throat discomfort worsens with swallowing. She has not identified any alleviating factors related to the pain. Associated with her pain she reports she has been having ongoing fevers, painful talking, facial swelling, and left ear pain. She denies skin eruptions, skin color changes, headache, dizziness, lightheadedness, hearing changes, ear drainage, drooling, inability to swallow, neck pain/stiffness, nausea, vomiting, recent face trauma. REVIEW OF SYSTEMS: As noted above in History of Present Illness. 8 body systems were reviewed with this patient and found to be negative unless noted above otherwise. PMH: Asthma, bronchitis, pneumonia, kidney stones. CURRENT MEDICATION: DuoNeb, albuterol, Tylenol. ALLERGIES TO MEDICATION: Benadryl, hydrocodone, latex, Naprosyn. SOCIAL HISTORY: Patient is currently employed; she feels safe in her home environment; she admits to tobacco use and denies alcohol use. PHYSICAL EXAM: Vital Signs: Date Time Temp Pulse Resp B/P Pulse Ox O2 Delivery O2 Flow Rate FiO2 11/27/16 19:57 36.7 100 20 132/82 97 11/27/16 19:08 36.7 100 20 132/82 97 Room Air General: 36 year-old white female in moderate distress due to pain, nontoxic appearing, afebrile and hemodynamically stable. Neurological: Awake, alert and oriented to person, place and time. Answering questions appropriately and following commands. Normal gait. Good hand eye coordination. No focal motor or sensory deficits. Skin: Warm, dry and pink. I do not appreciate any facial swelling or erythema. HEENT: Atraumatic and normocephalic. External ears are nontender. Auditory canals are pink and patent. Tympanic membranes are not erythematous or edematous. No trismus. Oral cavity is moist and pink. Airway is patent. Uvula is midline and no abscesses are seen. No posterior pharyngeal erythema or edema. No tonsillar hypertrophy or exudates. Tooth #30 has a large cavity at the base of the tooth on the occlusive surface and tooth #19 is broken with the occlusive posterior aspect of the tooth missing and possible exposure of the nerve. There is no local erythema or edema of the gingiva. There is no local palpable abscess. Her voice is soft and week. She does not appear in any discomfort with talking. She is able to control her secretions. No drooling was noted. No submandibular or cervical lymphadenopathy. No laryngeal tenderness. ED COURSE: Patient is assessed as noted above. Patient was given one Percocet 5/325 mg tablet and 500 mg of Pen-Vee K by mouth for her pain and the start of her antibiotic coverage. Patient is educated about her findings and instructed on her treatment plan; she verbalizes understanding and agreement with this plan. CLINIC IMPRESSION: Dental pain. Possible dental abscess. Acute pharyngitis. Laryngitis. DISPOSITION: Patient discharged home in stable condition; prior to departure she was reassessed and subjectively reported she was feeling much better and rated her discomfort 4/10. PLAN: Comfort measures were discussed the patient including including a sliding pain scale of ibuprofen, acetaminophen and [place]. Covering her affected teeth with dental wax. And avoiding tobacco use. She was warned that Percocet is a narcotic and she was educated on narcotic precautions. Additionally I did run her personal information to the [place] ideeli database and no significant red flags were noted. Patient was prescribed Pen-Vee K 500 mg 4 times a day for 10 days. Patient was encouraged to stay well-hydrated and use a liquid/mechanical soft diet until resolution of throat discomfort. Patient was encouraged to recontact her dentist for possible recheck and reevaluation of the timing of her upcoming appointments. Patient was encouraged return ED for worsening pain, uncontrolled fevers, inability to swallow, drooling or any new/concerning symptoms.
[2017-05-07] MEDS ORDERED: ACET-1256 PO (10:46)
== END 2016-11-27 19:59 | disposition home or self-care (01) ==
LOC: C.EDB 19:06 → C.EDD 19:59
DX: K08.89 Other specified disorders of teeth and supporting structures (principal); J02.9 Acute pharyngitis, unspecified; J04.0 Acute laryngitis; J45.909 Unspecified asthma, uncomplicated; F17.200 Nicotine dependence, unspecified, uncomplicated

== ENCOUNTER 2017-01-16 18:22 | Emergency (ER) | payer OTHER ==
[~2017-01-16] VITALS: Ht 167.6 cm; Wt 129.9 kg
[~2017-01-16 18:22] MED LIST changes: +ACET-1256 PO; -OXYC1TAB3 PO; -PRED10TA PO
[2017-01-16 18:24] VITALS: TEMP 37.4; Ht 167.6 cm; Wt 129.9 kg
[2017-01-16] MEDS ORDERED: ONDANSETRON INJ 2 MG/ML 2 ML VIAL IV STA (18:38)
[2017-01-16] MEDS ORDERED: OPTIRAY 320 IV PRN (18:45)
[2017-01-16] MEDS ORDERED: OXYC-643 PO (18:57)
[2017-01-16] MEDS ORDERED: LRS20 PO (18:57)
[2017-01-16 19:28] LABS: BASO % 0.5 %; BASO ABS # 0.03 K/uL (0-0.2); COMPLETE YES; EOS % 5.5 %; HEMATOCRIT 39.5 % (37-47); IG% 0.2 %; LYMPH % 24.9 %; LYMPH ABS # 1.41 K/uL (1.2-3.4); MEAN CORPUSCULAR HEMOGLOBIN 28.3 pg (25-34); MEAN CORPUSCULAR HGB CONC 32.2 g/dl (32-36); MEAN PLATELET VOLUME 11.4 fL (7.4-10.4); MONO % 6.9 %; PLATELET COUNT 161 K/uL (130-400); RED BLOOD COUNT 4.49 M/uL (4.2-5.4); WHITE BLOOD COUNT 5.66 K/uL (4.8-10.8)
[2017-01-16 19:44] LABS: ALT/SGPT 47 U/L (12-78); BLOOD UREA NITROGEN 16 mg/dl (7-18); BUN/CREATININE RATIO 19.4 (10-20); CALCIUM 9.5 mg/dl (8.5-10.1); CARBON DIOXIDE 26 mmol/L (21-32); CHLORIDE 108 mmol/L (98-107); CREATININE 0.84 mg/dl (0.60-1.20); GLUCOSE 115 mg/dl (70-99); POTASSIUM 3.4 mmol/L (3.5-5.1); SODIUM 141 mmol/L (136-145)
[2017-01-16 19:54] LABS: URINE APPEARANCE CLOUDY (CLEAR); URINE COLOR DK YELLOW; URINE EPITHELIAL CELL AUTO >30 /lpf (0-5); URINE NITRITE NEG (NEG); UROBILINOGEN NEG (NEG); ZZUR CULT IF INDIC CLEAN CATCH NO
[2017-01-16 19:55] LABS: ALB/GLOB RATIO 1.2 (0.9-2); ALKALINE PHOSPHATASE 88 U/L (45-117); AST/SGOT 35 U/L (15-37)
[2017-01-16 19:56] LABS: MANUAL MICROSCOPIC REQUIRED? NO; REVIEW REQ? YES
[2017-01-16 19:57] LABS: URINE BILIRUBIN NEG (NEG)
[2017-01-16 20:22] LABS: BENZODIAZEPINE, URINE NEG (NEG); COCAINE,URINE NEG (NEG); PHENCYCLIDINE, URINE NEG (NEG)
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
[2017-01-16 20:45] VITALS: BP 117/80; PULSE 84; O2SAT 97
[2017-01-16] MEDS ORDERED: PRVHFAIN INH (22:25)
== END 2017-01-16 20:46 | disposition home or self-care (01) ==
LOC: C.EDB 18:23 → C.EDC 20:46
DX: R07.9 Chest pain, unspecified (principal); V89.2XXA Person injured in unspecified motor-vehicle accident, traffic, initial encounter; F41.9 Anxiety disorder, unspecified; J45.909 Unspecified asthma, uncomplicated; E66.01 Morbid (severe) obesity due to excess calories; Z83.3 Family history of diabetes mellitus; Z82.49 Family history of ischemic heart disease and other diseases of the circulatory system; F17.200 Nicotine dependence, unspecified, uncomplicated

== ENCOUNTER 2017-01-23 10:17 | Emergency (ER) | payer OTHER ==
[~2017-01-23 10:17] MED LIST changes: -ACET-1256 PO; -IPRASOL4 NEB; +LRS20 PO; -OXYC-57 PO; +OXYC-643 PO; +PRVHFAIN INH
[2017-01-23 10:25] VITALS: TEMP 36.7; Ht 167.6 cm
[2017-01-23] MEDS ORDERED: ACETAMINOPHEN 500 MG TAB PO STA (10:35)
[2017-01-23] MEDS ORDERED: IBUPROFEN 800 MG TAB PO STA (10:35)
[2017-01-23] MEDS ORDERED: ACET-1256 PO (10:46)
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
[2017-01-23 12:47] VITALS: BP 112/68; PULSE 76; O2SAT 98
== END 2017-01-23 12:49 | disposition home or self-care (01) ==
LOC: C.EDB 10:18 → C.EDA 12:49
DX: S80.02XD Contusion of left knee, subsequent encounter (principal); S93.402D Sprain of unspecified ligament of left ankle, subsequent encounter; V89.2XXA Person injured in unspecified motor-vehicle accident, traffic, initial encounter; F41.9 Anxiety disorder, unspecified; F32.9 Major depressive disorder, single episode, unspecified; E66.01 Morbid (severe) obesity due to excess calories; Z68.43 Body mass index [BMI] 50.0-59.9, adult; Z87.01 Personal history of pneumonia (recurrent); F17.210 Nicotine dependence, cigarettes, uncomplicated; Z83.3 Family history of diabetes mellitus; Z80.9 Family history of malignant neoplasm, unspecified; Z82.49 Family history of ischemic heart disease and other diseases of the circulatory system; Z84.1 Family history of disorders of kidney and ureter

== ENCOUNTER 2017-03-01 09:20 | Emergency (ER) | payer OTHER ==
[~2017-03-01] VITALS: Ht 167.6 cm; Wt 111.0 kg
[~2017-03-01 09:20] MED LIST changes: +ACET-1256 PO; -LRS20 PO; -OXYC-643 PO
[2017-03-01 09:31] VITALS: TEMP 36.9; Ht 167.6 cm; Wt 111.0 kg
[2017-03-01] MEDS ORDERED: KETOROLAC TROMETHAMINE 30 MG/ML VIAL IV STA (10:04)
[2017-03-01] MEDS ORDERED: ONDANSETRON INJ 2 MG/ML 2 ML VIAL IV STA (10:04)
[2017-03-01] MEDS ORDERED: SODIUM CHLORIDE 0.9% 1000ML 1,000 ML IV STA (10:04)
[2017-03-01] MEDS ORDERED: DEXAMETHASONE SOD INJ 10 MG/ML VIAL IV ONE (10:15)
[2017-03-01 10:38] LABS: BASO % 0.7 %; BASO ABS # 0.03 K/uL (0-0.2); COMPLETE YES; EOS % 6.1 %; HEMATOCRIT 39.3 % (37-47); IG% 0.2 %; LYMPH % 29.8 %; LYMPH ABS # 1.31 K/uL (1.2-3.4); MEAN CELL VOLUME 88.3 fL (80-100); MEAN CORPUSCULAR HGB CONC 32.8 g/dl (32-36); MEAN PLATELET VOLUME 10.7 fL (7.4-10.4); MONO % 5.9 %; NEUT % 57.3 %; PLATELET COUNT 150 K/uL (130-400); RED BLOOD COUNT 4.45 M/uL (4.2-5.4)
[2017-03-01] MEDS ORDERED: PROMETHAZINE HCL INJ 12.5 MG in SODIUM CHLORIDE 0.9% 50ML 50 ML IV STA (11:01)
[2017-03-01] MEDS ORDERED: MoRPHine SULFATE 4 MG/ML 1 ML CARP\\VIAL IV STA (11:01)
[2017-03-01 11:04] LABS: BUN/CREATININE RATIO 19.4 (10-20); CALCIUM 8.8 mg/dl (8.5-10.1); CREATININE 0.58 mg/dl (0.60-1.20); POTASSIUM 4.2 mmol/L (3.5-5.1)
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
[2017-03-01 12:21] VITALS: BP 118/69; PULSE 62; O2SAT 99
== END 2017-03-01 12:22 | disposition home or self-care (01) ==
LOC: C.EDB 09:22 → C.EDA 12:22
DX: R51 Headache (principal); F17.200 Nicotine dependence, unspecified, uncomplicated; F41.9 Anxiety disorder, unspecified; F32.9 Major depressive disorder, single episode, unspecified; J45.909 Unspecified asthma, uncomplicated; E66.01 Morbid (severe) obesity due to excess calories

== ENCOUNTER 2017-05-07 21:23 | Emergency (ER) | payer OTHER ==
[~2017-05-07] VITALS: Ht 167.6 cm; Wt 127.7 kg
[~2017-05-07 21:23] MED LIST changes: -PRVHFAIN INH
[2017-05-07 21:36] VITALS: TEMP 37.5; Ht 167.6 cm; Wt 127.7 kg
[2017-05-07] MEDS ORDERED: PRVHFAIN INH (22:25)
[2017-05-07] MEDS ORDERED: IPRASOL4 INH (22:34)
[2017-05-07] MEDS ORDERED: ALBUT/IPRATROP 3MG/0.5MG NEB 3 ML VIAL INH STA (22:50)
[2017-05-07] MEDS ORDERED: PSEUDOEPHEDRINE HCL 30 MG TAB PO STA (22:50)
[2017-05-07] MEDS ORDERED: OXYMETAZOLINE HCL 0.05% NA SPR 15 ML BTL ONE (23:00)
[2017-05-07] MEDS ORDERED: DEXAMETHASONE SOD INJ 10 MG/ML VIAL PO ONE (23:00)
[2017-05-07 23:06] VITALS: O2SAT 99
[2017-05-08] MEDS ORDERED: AMOXICIL/CLAVU 875MG HOME PACK PO ONE
[2017-05-08] MEDS ORDERED: PRED50TA PO (00:09)
[2017-05-08] MEDS ORDERED: AMOX875T PO (00:09)
[2017-05-08 00:22] VITALS: BP 95/73; PULSE 108; O2SAT 95
--- NOTE | 2017-05-08 04:46 | EMERGENCY ROOM VISIT NOTE ---
History First contact with patient: 22:34 Chief Complaint: COUGH Stated Complaint: COLD SYMPTOMS, DIZZY SPELLS Nursing Triage Summary: Patient ambulatory to triage, states "I have sinus congestion that is settling into my chest. I am coughing up nasty green stuff. I started getting fevers on Thursday night. I am taking Day and Nyquil with no relief. I took some around 1999 this evening. I started having dizziness on and off all day today. I have dizzy spells a lot. This evening, it got really bad around 1929." History of Present Illness The patient is a 36 year old female who presents to the Emergency Room with complaints of cough, congestion, sinus pain / congestion who smokes with a history of asthma for the past few days of fever and chills. Patient denies chest pain, dyspnea, headache, neck stiffness, sore throat, earache. No recent travel. She is tolerate by mouth fluids and food. Review of Systems See HPI for pertinent positives & negatives. A total of 10 systems reviewed and were otherwise negative. Past Medical/Surgical History Medical Problems: (1) Anxiety (2) Asthma (3) Asthma exacerbation (4) Asthma exacerbation (5) Bronchitis (6) Depression (7) Lumbar back pain (8) Morbid obesity with BMI of 50.0-59.9, adult (9) Otitis (10) Pain, dental (11) Pneumonia (12) Sinusitis (13) Status post laser lithotripsy of ureteral calculus (14) Tobacco abuse Surgical Problems: (1) H/O cystoscopy (2) S/P foot surgery, left Family History Diabetes mellitus FH: cancer Gallbladder disease Heart disease Hypertension Kidney disease Kidney stones Social History Smoking Status: Current Every Day Smoker Alcohol Use: none Drug Use: none Marital Status: Housing Status: lives with family Occupation Status: employed Current/Historical Medications Scheduled Amoxicillin & Pot Clavulanate (Augmentin 875-125 mg), 1 TAB PO BID Prednisone (Prednisone), 50 MG PO DAILY Scheduled PRN Acetaminophen (Tylenol), 1,000 MG PO Q8 PRN for Pain Albuterol (Ventolin Hfa), 2 PUFFS INH QID PRN for SOB/Wheezing Ipratropium-Albuterol (Duoneb), 1 TREATMENT INH Q4H PRN for SOB/Wheezing Physical Exam Vital Signs Date Time Temp Pulse Resp B/P (MAP) Pulse Ox O2 Delivery O2 Flow Rate FiO2 05/08/17 00:22 108 20 95/73 95 05/07/17 23:06 99 05/07/17 23:06 97 22 121/79 99 Nebulizer 8.0 05/07/17 21:42 95 Room Air 05/07/17 21:36 37.5 106 20 138/82 94 Room Air Physical Exam PHYSICAL EXAM: Vital Signs: Reviewed Nurse's notes. Oxygen saturation was on room air. GENERAL: Pleasant female, Alert, oriented and coherent. The patient able to speak in complete sentences. NECK: Supple, non-tender. CHEST: Symmetrical expansion. no retractions no accessory muscle use. HEART: Regular rate and normal heart sounds, no murmur, gallop or rub. LUNGS: Breath sounds equal but significantly diminished in intensity on both sides. Bilateral wheezes heard but no rales or pleuritic rub. SKIN: The skin was without rashes, erythema, edema, or bruising. There is no tenting of the skin. Capillary reflex less than 2 seconds. HEAD: Normocephalic atraumatic. EARS: External auditory canals clear, tympanic membranes pearly montoya without erythema or effusion bilaterally. EYES: Pupils equal round and reactive to light and accommodation. Conjunctivae without injection, sclerae without icterus. Extraocular movements intact. NOSE: Patent, turbinates without inflammation or discharge. Bilateral maxillary sinus tenderness. MOUTH: Mucous membranes moist. Pharynx without erythema or exudate. Uvula midline. Airway patent. Tongue does not deviate. ABDOMEN: Positive bowel sounds x 4. Normal tympanic percussion. Soft, nontender, without masses or organomegaly. Maria sign negative. No guarding or rebound tenderness. MUSCULOSKELETAL: No muscle atrophy, erythema, or edema noted. NEURO: Patient was alert and oriented to person place and time. Normal sensation to light and sharp touch. No focal neurological deficits. Medical Decision & Procedures Medications Administered Medications (Trade) Dose Ordered Sig/Cristian Route Start Time Stop Time Status Last Admin Dose Admin Albuterol/ Ipratropium (Duoneb) 3 ml NOW STAT INH 05/07/17 22:50 05/07/17 22:52 DC 05/07/17 23:02 3 ML Dexamethasone Sodium Phosphate (Decadron Inj) 10 mg NOW ONCE PO 05/07/17 23:00 05/07/17 23:01 DC 05/07/17 23:01 10 MG Pseudoephedrine HCl (Sudafed Tab) 60 mg NOW STAT PO 05/07/17 22:50 05/07/17 22:52 DC 05/07/17 23:01 60 MG Oxymetazoline HCl (Afrin 0.05% Nasal [place]) 1 sprays NOW ONCE NA 05/07/17 23:00 05/07/17 23:01 DC 05/07/17 23:01 1 SPRAYS Amoxicillin/ Clavulanate Potassium (Augmentin 875MG Home Pack) 1 homepack UD ONCE PO 05/08/17 00:00 05/08/17 00:01 DC 05/08/17 00:20 1 HOMEPACK ED Course Prior records/ancillary studies reviewed. Triage Nursing notes reviewed. The patient's history was concerning for cough, sinus pain or congestion and fever. Differential diagnosis: Etiologies such as viral syndrome, otitis, pharyngitis, pneumonia, influenza, meningitis, sinusitis, sepsis, bacteremia, as well as others were entertained. Physical examination: Patient is alert, oriented and tolerating fluids ER treatment provided: Augmentin, prednisone, DuoNeb On reassessment the patient felt better. Diagnostics interpreted by me: Imaging studies: Chest x-ray with no acute consolidation, pneumothorax or free air per my interpretation This appears to be consistent with sinusitis with bronchitis. Patient was started on antibiotics. Her symptoms have been present for several days. She was strongly encouraged to quit smoking. She is advised take cold medicines as directed and to follow-up family care in a few days or here in the ER sooner for high fevers, chest pain, difficulty breathing, neck stiffness, worsening signs or symptoms or as needed. Patient no signs of meningitis or airway compromise. She is well-appearing. By the evaluation outlined above emergent etiologies such as otitis, pharyngitis, meningitis, urinary tract infection, sepsis, bacteremia, as well as others were deemed relatively unlikely. The pt informed about the findings as listed above. All questions were answered and pleased with the treatment. Return instructions were outlined and the patient was discharged in stable condition. Outpatient prescription management: Augmentin, prednisone Referral: The patient was referred back to their primary care physician for follow-up in 2 to 3 days for a recheck of the current condition. Case reviewed with my attending Medical Decision As above Medication Reconcilliation Current Medication List: was personally reviewed by me Blood Pressure Screening Patient's blood pressure: Normal blood pressure Impression Primary Impression: Acute maxillary sinusitis Additional Impression: Acute bronchitis Departure Information Prescriptions Amoxicillin & Pot Clavulanate (Augmentin 875-125 mg) 1 Tab Tab 1 TAB PO BID for 9 Days, #18 TAB Prov: Toshia Wall .SUSAN 05/08/17 Prednisone (Prednisone) 50 Mg Tab 50 MG PO DAILY for 4 Days, #4 TAB Prov: Toshia Wall PA-C 05/08/17 Forms HOME CARE DOCUMENTATION FORM, Work Instructions, Return To Work: 2 days IMPORTANT VISIT INFORMATION Patient Instructions Sinusitis Acute, Bronchitis Acute, My [facility] Additional Instructions Amoxicillin Clavulanate (Augmentin) 875mg: Take one pill twice daily for 10 days for your infection. All antibiotics can cause diarrhea. If this occurs and you feel worse or it does not resolve in 1-2 days follow up with your doctor or return to the Emergency Department as this could be signs of serious underlying problems. Any medication can cause an allergic reaction, stop the pills immediately and return to the ER for rash, hives, breathing difficulties, or swelling. Albuterol Inhaler: Take 2 puffs four times daily for five days, then as needed. Prednisone 50mg: Once daily until the prescription is finished. It is best to take this earlier in the day as some patients note occasional difficulty falling asleep when taken in the late evening. Acetaminophen(Tylenol) may be used for fever or pain. Use 1000mg every six hours as needed. Avoid using more than 3000mg in a 24 hour period. (AND/OR) Ibuprofen(Motrin, Advil) may be used for fever or pain. Use 600mg every six hours as needed. Take with food. Avoid using more than 2400mg in a 24 hour period. Do not use 2400mg per day for more than three consecutive days without physician direction. Prolonged inappropriate use can lead to stomach upset or ulcers. Afrin nasal spray: 2-3 sprays to each nostril twice daily as needed for congestion. Do not use for more than 3-4 days because it can lead to worsening rebound congestion. Pseudoephedrine(Sudaphed): 30-60mg every 6 hours as needed for nasal congestion. Do not take this with other stimulant products or supplements. Rest and drink plenty of fluids. Controlling your fever with Tylenol and Ibuprofen as above will make you feel better. Wash your hands after nose blowing, sneezing, or coughing. Most germs are spread through contact, therefore improper hygiene may result in your close contacts and loved ones becoming ill just like you. Avoid smoke/smoking, fumes, dust, or any triggers in the past that may have affected your breathing. Continue current medications. Return to the ER for chest pain, difficulty breathing, fevers, vomiting, worsening of your condition, or as needed. Follow up with your primary physician this week for a recheck of your current condition. Work Instructions Return To Work: 2 days Problem Qualifiers Primary Impression: Acute maxillary sinusitis Recurrence: not specified as recurrent Qualified Codes: J01.00 - Acute maxillary sinusitis, unspecified
--- NOTE | 2017-05-08 07:40 | DIAGNOSTIC IMAGING REPORT ---
CHEST 2 VIEWS ROUTINE HISTORY: cough/fever COMPARISON: Chest 10/13/2016. FINDINGS: The lungs are clear. Cardiac silhouette is normal in size. No pleural effusions. No pneumothorax. Incidental note is made of a small right azygos lobe. IMPRESSION: No acute process. Electronically signed by: Damian Woodruff M.D. 05/08/2017 7:39 AM Dictated Date/Time: 05/08/2017 7:38 AM
== END 2017-05-08 00:24 ==
LOC: C.EDB 21:26 → C.EDC 05-08 00:24
DX: J01.00 Acute maxillary sinusitis, unspecified (principal); J40 Bronchitis, not specified as acute or chronic; F41.9 Anxiety disorder, unspecified; J45.909 Unspecified asthma, uncomplicated; F32.9 Major depressive disorder, single episode, unspecified; E66.9 Obesity, unspecified; Z83.3 Family history of diabetes mellitus; Z82.49 Family history of ischemic heart disease and other diseases of the circulatory system; F17.200 Nicotine dependence, unspecified, uncomplicated

== ENCOUNTER 2017-07-23 08:43 | Emergency (ER) | payer OTHER ==
[~2017-07-23] VITALS: Ht 167.6 cm; Wt 125.0 kg
[~2017-07-23 08:43] MED LIST changes: +IPRASOL4 INH; +PRVHFAIN INH
[2017-07-23 09:00] VITALS: TEMP 36.7; Ht 167.6 cm; Wt 125.0 kg
[2017-07-23] MEDS ORDERED: KETOROLAC TROMETHAMINE 30 MG/ML VIAL IV STA (09:49)
[2017-07-23] MEDS ORDERED: MECLIZINE HCL 25 MG TAB PO STA (09:49)
[2017-07-23] MEDS ORDERED: PSEUDOEPHEDRINE HCL 30 MG TAB PO STA (09:49)
[2017-07-23] MEDS ORDERED: ONDANSETRON INJ 2 MG/ML 2 ML VIAL IV STA (09:49)
[2017-07-23] MEDS ORDERED: SODIUM CHLORIDE 0.9% 1000ML 1,000 ML IV ONE (10:00)
[2017-07-23 10:43] LABS: BASO % 0.8 %; BASO ABS # 0.04 K/uL (0-0.2); EOS % 7.9 %; EOS ABS # 0.38 K/uL (0-0.5); HEMATOCRIT 41.6 % (37-47); LYMPH ABS # 1.44 K/uL (1.2-3.4); MEAN CELL VOLUME 89.1 fL (80-100); MEAN CORPUSCULAR HGB CONC 33.7 g/dl (32-36); MEAN PLATELET VOLUME 10.8 fL (7.4-10.4); MONO % 6.9 %; MONO ABS # 0.33 K/uL (0.11-0.59); NEUT % 54.4 %; NEUT ABS # 2.61 K/uL (1.4-6.5); PLATELET COUNT 145 K/uL (130-400); RED CELL DISTRIBUTION WIDTH CV 13.1 % (11.5-14.5); RED CELL DISTRIBUTION WIDTH SD 42.2 fL (36.4-46.3)
--- NOTE | 2017-07-23 10:50 | DIAGNOSTIC IMAGING REPORT ---
CT SCAN OF THE BRAIN WITHOUT IV CONTRAST CLINICAL HISTORY: Headache and dizziness. Vomiting. COMPARISON STUDY: CT scan of the paranasal sinuses dated 07/31/2014. TECHNIQUE: Unenhanced axial CT scan of the brain is performed from the vertex to the skull base. A dose lowering technique was utilized adhering to the principles of ALARA. CT DOSE: 638.56 mGycm FINDINGS: Brain parenchyma: The brain parenchyma is normal in appearance. There is no hemorrhage, mass effect, or evidence of acute territorial ischemia by CT criteria. Rocha-white matter is preserved. No extra-axial fluid collection is seen. Ventricles, sulci, cisterns: Normal in configuration. Intracranial vasculature: The visualized intracranial vasculature at the skull base is normal in appearance. Calvarium: Unremarkable. Sinuses and mastoids: The visualized paranasal sinuses are clear. The mastoid air cells are well pneumatized. Orbits: The bony orbits are grossly intact. IMPRESSION: No acute intracranial abnormality. Electronically signed by: Adonis David M.D. 07/23/2017 10:49 AM Dictated Date/Time: 07/23/2017 10:46 AM
[2017-07-23 10:55] VITALS: BP 116/70; PULSE 67; O2SAT 100
[2017-07-23 11:04] LABS: CALCIUM 9.3 mg/dl (8.5-10.1); CREATININE 0.58 mg/dl (0.60-1.20)
[2017-07-23] MEDS ORDERED: TRAMADOL HCL 50 MG TAB PO STA (11:48)
[2017-07-23] MEDS ORDERED: MECL-91 PO (11:56)
--- NOTE | 2017-07-23 12:59 | EMERGENCY ROOM VISIT NOTE ---
ED Visit Note First contact with patient: 09:09 Chief Complaint: Dizziness and sinus pain. History of Present Illness: Ms. Amaya is a 36 year-old white female who ambulates into the ED complaining of dizziness and sinus pain/congestion. Historically patient medical record review that patient has been having recurrent sinusitis for many years. Most recently patient reports she started having nasal congestion and pressure the day after Reina, 10 days ago, she used DayQuil and NyQuil and the symptoms resolved within 2-3 days. Patient reports this past Thursday, 4 days ago, she had return of sinus congestion and dizziness. Since that time her symptoms have been constant and becoming progressively worse. She describes her sinus congestion/discomfort as a pressure sensation. She rates her discomfort 8/10. Her pain is nonradiating. She has not identified any aggravating or alleviating factors related to the pain. She has not taken any medications for her symptoms. Associated with her symptoms she reports she has a dizziness sensation; she describes this as a spinning sensation and feeling off balance. She has had a throat discomfort with laryngitis, a posterior parietal headache and nausea without vomiting. She describes her parietal headache as a pressure sensation and rates this discomfort 8/10 also. She denies any aggravating or alleviating factors related to the pain. She has not taken any medication for pain prior to arrival at the hospital. Her nasal drainage of a yellow/green. And she also reports that she has been having a mildly productive cough of the same yellowish/greenish material. Lastly she reports that she feels overall weak. Patient denies fevers, chills, sweats, skin eruptions, skin color changes, hearing changes, visual changes, difficulty speaking, difficult swallowing, drooling, painful talking, neck pain/stiffness, shortness of breath, wheezing, hemoptysis, palpitations, orthopnea, abdominal pain, decreased appetite, extremity weakness/numbness/tingling. Review of Systems: As noted above in history of present illness. All body systems were reviewed and found to be negative as noted above. Past Medical History: Asthma, anxiety, bronchitis, depression, chronic back pain , obesity, pneumonia, kidney stone with lithotripsy, and status post unspecified left foot surgery area Current Medications: Medications Dose Route/Sig Max Daily Dose Days Date Category Duoneb (Ipratropium-Albuterol) 3 Ml Nebu 1 Treatment INH Q4H PRN 10/19/17 Reported Ventolin Hfa (Albuterol) 60 Puffs/5400 Mcg Aers 2 Puffs INH QID PRN 09/09/16 Reported Allergies to Medications: Benadryl, hydrocodone, latex, levothyroxine, naproxen. Social History: Patient is currently employed; she feels safe in her home environment; she admits to tobacco use. Physical Examination: Vital Signs: Date Time Temp Pulse Resp B/P (MAP) Pulse Ox O2 Delivery O2 Flow Rate FiO2 07/23/17 10:55 67 18 116/70 100 Room Air 07/23/17 10:11 18 98 Room Air 07/23/17 10:06 69 108/72 79 123/88 85 128/71 07/23/17 09:00 36.7 74 20 118/70 98 Room Air 07/23/17 09:00 97 Room Air GENERAL: 36-year-old female in mild to moderate distress due to symptoms, nontoxic-appearing, afebrile and hemodynamically stable. NEUROLOGICAL: Awake, alert and oriented to person, place and time. Answering questions appropriately and following commands. Good hand eye coordination. No focal motor sensory deficits. SKIN: Warm, dry and pink. No soft tissue eruptions or trauma noted. HEENT: Atraumatic and normocephalic. No erythema over the frontal maxillary sinuses. Mild tenderness over the frontal sinuses. External ears are nontender. Auditory canals are pink and patent. Tympanic membranes are mildly erythematous but not bulging. No erythema or tenderness over the mastoid processes. PERRLA. Sclera white and conjunctiva pink without drainage. No drainage from naris, but with mild audible congestion. Oral cavity moist and pink. Uvula is midline and no abscesses are seen. Posterior pharyngeal area is mildly erythematous but not edematous. No tonsillar hypertrophy or exudates. Voice is whispered and soft. Positive left anterior cervical chain lymphadenopathy. No laryngeal tenderness. Trachea midline. No jugular venous distention. BACK: No tenderness over the bony spine. No nuchal rigidity. No meningismus. Full range of motion of the cervical spine. No CVA tenderness. THORAX: Lungs sounds are clear to auscultation and equal bilaterally with symmetrical chest wall. No wheezing, rales or rhonchi. No crepitus, tenderness , subcutaneous air or deformities noted. HEART: Regular rate and rhythm. No gallops, rubs or murmurs are appreciated. ABDOMEN: Flat, soft and nontender. Positive bowel sounds in all quadrants. No guarding, rigidity or organomegaly. EXTREMITIES: Moves all extremities well on command and with purpose. All distal neurovascular statuses are intact and equal bilaterally. No calf tenderness or cords. ED Course: Patient is assessed as noted above. Patient's medication list was reviewed. Laboratory Testing: Test 07/23/17 10:18 07/23/17 10:30 Range/Units Urine Color YELLOW Urine Appearance CLEAR CLEAR Urine pH 6.5 4.5-7.5 Urine Specific [place] 1.024 1.000-1.030 Urine Protein NEG NEG Urine Glucose (UA) NEG NEG Urine Ketones NEG NEG Urine Occult Blood NEG NEG Urine Nitrite NEG NEG Urine Bilirubin NEG NEG Urine Urobilinogen NEG NEG Urine Leukocyte Esterase NEG NEG White Blood Count 4.80 4.8-10.8 K/uL Red Blood Count 4.67 4.2-5.4 M/uL Hemoglobin 14.0 12.0-16.0 g/dL Hematocrit 41.6 37-47 % Mean Corpuscular Volume 89.1 80-100 fL Mean Corpuscular Hemoglobin 30.0 25-34 pg Mean Corpuscular Hemoglobin Concent 33.7 32-36 g/dl Platelet Count 145 130-400 K/uL Mean Platelet Volume 10.8 7.4-10.4 fL Neutrophils (%) (Auto) 54.4 % Lymphocytes (%) (Auto) 30.0 % Monocytes (%) (Auto) 6.9 % Eosinophils (%) (Auto) 7.9 % Basophils (%) (Auto) 0.8 % Neutrophils # (Auto) 2.61 1.4-6.5 K/uL Lymphocytes # (Auto) 1.44 1.2-3.4 K/uL Monocytes # (Auto) 0.33 0.11-0.59 K/uL Eosinophils # (Auto) 0.38 0-0.5 K/uL Basophils # (Auto) 0.04 0-0.2 K/uL RDW Standard Deviation 42.2 36.4-46.3 fL RDW Coefficient of Variation 13.1 11.5-14.5 % Immature Granulocyte % (Auto) 0.0 % Immature Granulocyte # (Auto) 0.00 0.00-0.02 K/uL Sodium Level 136 136-145 mmol/L Potassium Level 4.0 3.5-5.1 mmol/L Chloride Level 106 98-107 mmol/L Carbon Dioxide Level 24 21-32 mmol/L Anion Gap 6.0 3-11 mmol/L Blood Urea Nitrogen 14 7-18 mg/dl Creatinine 0.58 0.60-1.20 mg/dl Est Creatinine Clear Calc Drug Dose 182.9 ml/min Estimated GFR () 138.4 Estimated GFR (Non- 119.4 BUN/Creatinine Ratio 24.0 10-20 Random Glucose 82 70-99 mg/dl Calcium Level 9.3 8.5-10.1 mg/dl Chemistry Specimen Hemolysis Microbiology Results 07/23/17 Group A Streptococcus Screen: Negative. Culture pending. Head CT: Was reviewed by myself and read by the radiologist and shows that the paranasal sinuses are clear and the mastoid cells were well pneumonitis. Patient was hydrated with normal saline and she was given 30 mg of Toradol IV for pain and 4 mg of Zofran IV for nausea. Additionally she received 50 mg of meclizine by mouth for pain and 60 mg of pseudoephedrine by mouth for nasal congestion. Patient was reassessed and subjectively reported she was feeling better but was still having a headache and requested additional pain medication. Patient was given 50 mg of tramadol by mouth for her pain. Patient discharged home in stable condition; prior to departure she was reassessed and once again reported she was feeling subjectively better but still reported a severe headache. Clinical Impression: Dizziness. Sinus congestion. Headache. Decision-Making: Initially my differential diagnosis I considered sinusitis, mastoiditis, meningitis, severe upper respiratory tract symptoms and other causes. Patient's blood pressure: Normal. Blood pressure disposition: None. Disposition: Patient discharged home in stable condition; prior to departure she was reassessed and rated her headache 9/10. Plan: Patient was encouraged to alternate ibuprofen and acetaminophen every 3 hours as needed for persistent pain. Patient is encouraged use [id number] pseudoephedrine 30 mg every 6 hours as needed for congestion. Patient is encouraged to rest for the next 2 days and stay well hydrated. Patient was prescribed 25 mg of Antivert every 6 hours as needed for dizziness. Patient is encouraged to consider using a liquid/mechanical soft diet until resolution of throat discomfort. Patient was encouraged to follow-up with family physician for recheck and possible referral for treatment. Patient was encouraged return ED for worsening dizziness, worsening headaches, worsening sinus congestion, fevers, uncontrolled vomiting or any new/concerning symptoms.
== END 2017-07-23 12:27 | disposition home or self-care (01) ==
LOC: C.EDB 08:45
DX: R42 Dizziness and giddiness (principal); R09.81 Nasal congestion; R51 Headache; F17.200 Nicotine dependence, unspecified, uncomplicated